=== PATIENT | female | born 1995 ===

== ENCOUNTER 2017-11-16 19:41 | Emergency (ER) | payer OTHER ==
[2017-11-16 19:54] VITALS: RESP 20; O2SAT 100
--- NOTE | 2017-11-16 20:22 | C.PDOC ---
History Of Present Illness 22yo female, 1mo post- and not currently breast feeding, presents to ED with complaints of sore throat and fever for the past 1 day. She denies taking any medication for her symptoms. Patient denies any chest pain, difficulty breathing, difficulty swallowing, neck pain, or headache. Time Seen by Provider: 11/16/17 19:57 Chief Complaint (Nursing): Fever History Per: Patient History/Exam Limitations: clinical condition Onset/Duration Of Symptoms: Days (1) Current Symptoms Are (Timing): Still Present Associated Symptoms: Fever, Sore Throat. denies: Cough Past Medical History Reviewed: Historical Data, Nursing Documentation, Vital Signs Vital Signs: Last Vital Signs Temp 100 F H 11/16/17 20:38 Pulse 100 H 11/16/17 20:38 Resp 20 11/16/17 20:38 BP 109/74 11/16/17 20:38 Pulse Ox 100 11/16/17 20:38 - Medical History PMH: No Chronic Diseases Surgical History: No Surg Hx Family History: States: No Known Family Hx - Social History Hx Alcohol Use: No Hx Substance Use: No - Immunization History Hx Tetanus Toxoid Vaccination: Yes Hx Influenza Vaccination: Yes Hx Pneumococcal Vaccination: Yes Review Of Systems Except As Marked, All Systems Reviewed And Found Negative. Constitutional: Positive for: Fever ENT: Positive for: Throat Pain Cardiovascular: Negative for: Chest Pain Respiratory: Negative for: Cough, Shortness of Breath Physical Exam - Physical Exam Appears: Well, Non-toxic, No Acute Distress Skin: Normal Color, Warm, Dry Head: Atraumatic, Normacephalic Eye(s): bilateral: Normal Inspection, PERRL, EOMI Ear(s): Bilateral: Normal Nose: Normal Oral Mucosa: Moist Throat: Erythema, Exudate, No Drooling Neck: Normal ROM, Supple Lymphatic: Normal Exam Chest: Symmetrical Cardiovascular: Rhythm Regular Respiratory: Normal Breath Sounds, No Wheezing Neurological/Psych: Oriented x3, Normal Speech ED Course And Treatment O2 Sat by Pulse Oximetry: 100 (RA) Pulse Ox Interpretation: Normal Progress Note: Patient given amoxicillin 750mg and motrin 600 mg PO. Given prescriptions for Amoxicillin and Motrin and instructed to follow up with PMD in 2-3 days or return to ER if symtpoms persist or worsen. Disposition - Disposition Disposition: HOME/ ROUTINE Disposition Time: 20:20 Condition: STABLE Additional Instructions: Follow up with your primary medical doctor or clinic in 2-5 days for further evaluation. Take medications as prescribed. Return to the emergency department at any time if symptoms persist or worsen. Prescriptions: Amoxicillin 875 mg PO BID #20 tablet Ibuprofen [Motrin] 600 mg PO Q6 PRN #20 tab PRN Reason: Pain, Mild (1-3) Instructions: Sore Throat, Adult (DC) Forms: [employer] (Italian) - Clinical Impression Clinical Impression: Acute bacterial tonsillitis - PA / [employer] / Resident Statement MD/DO has reviewed & agrees with the documentation as recorded. - Scribe Statement The provider has reviewed the documentation as recorded by the Scribe (Krissy Schmid) Provider Attestation: All medical record entries made by the Scribe were at my direction and personally dictated by me. I have reviewed the chart and agree that the record accurately reflects my personal performance of the history, physical exam, medical decision making, and the department course for this patient. I have also personally directed, reviewed, and agree with the discharge instructions and disposition.
[2017-11-16 20:39] VITALS: BP 109/74; PULSE 100; TEMP 100
== END 2017-11-16 20:41 | disposition home or self-care (01) ==
LOC: C.ER 19:41
DX: J03.90 Acute tonsillitis, unspecified (principal)